=== PATIENT | female | born 1945 | race Caucasian/White ===

== ENCOUNTER 2017-06-18 20:23 | Emergency (ER) | payer MEDICARE ==
--- NOTE | 2017-06-18 21:53 | RAD ---
FOUR VIEWS RIGHT WRIST: 06/18/17 HISTORY: Right wrist pain and edema. Limited range of motion. FINDINGS: No fracture or dislocation is seen. 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 On two of the provided images, the small finger was imaged, and there is suggested fusion of t he middle and distal phalanx of the small finger with flexion deformity present. No other osseous abn ormality. IMPRESSION: No acute osseous abnormality involving the right wrist. If there is strong clinical concern for fract ure of the navicular bone, followup views of the wrist are recommended in 4 to 7 days to exclude a ra diographically occult fracture. POS: [facility]
[2017-06-19] MEDS ORDERED: Ibuprofen 200 MG TAB ONE (00:35)
== END 2017-06-19 00:45 | disposition home or self-care (01) ==
LOC: BURERS 20:23
DX: M10.031 Idiopathic gout, right wrist (principal); E11.9 Type 2 diabetes mellitus without complications; E78.5 Hyperlipidemia, unspecified; I10 Essential (primary) hypertension; E66.9 Obesity, unspecified; F32.9 Major depressive disorder, single episode, unspecified; Z79.82 Long term (current) use of aspirin; Z79.84 Long term (current) use of oral hypoglycemic drugs; Z79.899 Other long term (current) drug therapy